=== PATIENT | female | born 1985 | race Caucasian/White ===

== ENCOUNTER 2016-07-03 14:25 | Day surgery (SDC) | payer OTHER ==
[~2016-07-03 14:25] MED LIST: excedrin
[2016-07-03] MEDS ORDERED: MIRALAX17 G2 PO (19:45)
[2016-07-03] MEDS ORDERED: PERCOCET 5-3251 EACH PO (19:46)
== END 2016-07-03 20:37 ==
LOC: SRG 14:25 → ORW 15:20 → PACU 16:28 → CAR1 18:00
PROC: 0DTJ4ZZ Resection of Appendix, Percutaneous Endoscopic Approach (ICD-10-PCS; principal; 2016-07-03)
DX: K38.1 Appendicular concretions (principal); N80.5 Endometriosis of intestine; N83.201 Unspecified ovarian cyst, right side; F17.210 Nicotine dependence, cigarettes, uncomplicated; Z88.8 Allergy status to other drugs, medicaments and biological substances; Z90.49 Acquired absence of other specified parts of digestive tract; Z98.890 Other specified postprocedural states
CPT/HCPCS: J1170; J1200; J1335; J7030